=== PATIENT | male | born 1985 | race Two or more races ===

== ENCOUNTER 2019-02-27 20:57 | Inpatient (IN) | payer SELFPAY ==
[~2019-02-27] VITALS: Ht 167.6 cm; Wt 81.8 kg
[2019-02-27] MEDS ORDERED: ACETAMINOPHEN 650 mg PER 20 mL UD PO ONE (21:30)
[2019-02-27 21:48] LABS: Basophils # (auto) 0.1 uL; Basophils % (auto) 0.4 % (0.0-2.0); Eosinophils # (auto) 0 uL; Hematocrit 43.4 % (41.0-53.0); Hemoglobin 14.6 g/dL (13.5-17.5); Lymphocytes # (auto) 1.3 uL; Lymphocytes % (auto) 7.3 % (10.0-50.0); Mean Corpuscular Hemoglobin 29.2 pg (28.0-32.0); Mean Corpuscular Hgb Conc. 33.6 g/dL (32.0-36.0); Mean Corpuscular Volume 87.1 fL (80.0-100.0); Neutrophils # (auto) 14.5 uL; Neutrophils % (auto) 81.3 % (37.0-80.0); Platelet Count (auto) 347 10^3/uL (140-450); Red Blood Cells 4.98 10^6/uL (4.5-5.90); Red Cell Distribution Width 13.6 % (11.8-14.3); White Blood Cell 17.9 10^3/uL (4.4-10.8)
[2019-02-27 22:08] LABS: Albumin 3.2 g/dL (3.4-5.0); Anion Gap 10 (5-15); BUN/Creatinine Ratio 11.5; Blood Urea Nitrogen 10 mg/dL (7-18); Calcium 8.6 mg/dL (8.5-10.1); Carbon Dioxide 23 mmol/L (21-32); Chloride 99 mmol/L (98-107); GFR African American 132 mL/min; GFR Non-African American 109 mL/min; Glucose 117 mg/dL (74-106); Magnesium 2.4 mg/dL (1.6-2.6); Potassium 3.2 mmol/L (3.5-5.1); Sodium 132 mmol/L (136-145)
[2019-02-27 22:13] LABS: Alanine Aminotransferase 56 U/L (16-61); Alkaline Phosphatase 93 U/L (45-117); Aspartate Aminotransferase 27 U/L (15-37); Bilirubin, Total 0.6 mg/dL (0.2-1.0); Total Protein 8.8 g/dL (6.4-8.2)
[2019-02-27 22:37] LABS: INR 1.08 (0.9-1.15); Partial Thromboplastin Time 30.2 sec (23.78-33.04); Prothrombin Time 11.5 sec (9.27-12.13)
[2019-02-27 22:50] LABS: Urine Bacteria FEW /hpf (None Seen); Urine Blood Negative /uL (Negative); Urine Mucus FEW (None Seen); Urine Specific Gravity 1.025 (1.001-1.035); Urine WBC 1 /hpf (0 - 3)
[2019-02-28] MEDS ORDERED: IPRATROPIUM BROM 0.5 MG/2.5ML INH SOL NEB ONE (00:45)
[2019-02-28] MEDS ORDERED: methylPREDNISolone SOD SUCC 125 MG/2 ML VL IV ONE (00:45)
[2019-02-28] MEDS ORDERED: LEVOFLOXACIN 750MG 150 ML IV ONE (00:45)
[2019-02-28] MEDS ORDERED: ALBUTEROL SULF 2.5 MG/0.5ML(0.5%) NEB SOLN NEB ONE (00:45)
[2019-02-28] MEDS ORDERED: SODIUM CHLORIDE 0.9% 1,000 ML IV ONE (00:45)
[2019-02-28] MEDS ORDERED: ONDANSETRON HCL 4 MG/2 ML VIAL IV PRN (02:30)
[2019-02-28] MEDS ORDERED: TEMAZEPAM 15 MG CAP PO PRN (02:30)
[2019-02-28] MEDS ORDERED: ACETAMINOPHEN 325 MG TAB PO PRN (02:30)
--- NOTE | 2019-02-28 03:55 | NUR ---
MS admit from ER GENEVIEVE PAPPAS admitted to tele/MS; no SBAR received. Patient oriented by SUSIE VALDERRAMA, primary RN, to unit, room, bed, and unit policies regarding patient care and visiting hours. Patient weighed by bedscale and encouraged to call if he needs something. All questions and concerns addressed, patient verbalized understanding. Pain7/10; will give Harlan as ordered. Bed low. Nurse call light on OBT at bedside. HOB in Evans's position.
[2019-02-28] MEDS: HYDROcodone-ACET 5/325MG TAB PO PRN ×2 (04:51→14:06)
[2019-02-28 05:19] VITALS: BP 135/81
--- NOTE | 2019-02-28 07:20 | NUR ---
Open Shift Note Received report on patient, awake and sitting up in bed. Patient shows no signs of distress at this time. States they are feeling much better than yesterday, "especially after getting that [place]". Patient states no longer having headache. Discussed POC with patient. Bed in lowest locked position, side rails up x2, and call light within reach. Will continue to monitor.
[2019-02-28 09:00] VITALS: BP 142/88
[2019-02-28 09:07] VITALS: BP 135/81
--- NOTE | 2019-02-28 09:51 | NUR ---
Respiratory note: ASSESSED PT FOR PRN TX PT WAS AWAKE AND ALERT NO RESP DISTRESS NOTED. HR 111, RR 16, SPO2 94% ON ROOM AIR. BS ARE CLEAR. PT KNOWS TO HAVE RT PAGED IF TX IS NEEDED.
[2019-02-28] MEDS: FAMOTIDINE 20 MG TAB PO SCH ×2 (10:00→21:27)
--- NOTE | 2019-02-28 12:23 | NUR ---
Nutrition consult/assessment Notes please see attached link for complete assessment Est. Needs BW [id number] kcal (23-25 kcal/kgBW), 84-92 gms pro (1.0-1.1 gms/kgBW). Will continue to monitor pertinent labs and reassess nutrient need prn Addendum: 02/28/19 at [address] Amended: Links added.
[2019-02-28 13:00] VITALS: BP 140/103
[2019-02-28 16:59] VITALS: BP 144/100
[2019-02-28] MEDS ORDERED: LEVOFLOXACIN 500MG 100 ML IV SCH (22:00)
[2019-03-01 06:05] LABS: Basophils # (auto) 0 uL; Eosinophils # (auto) 0 uL; Eosinophils % (auto) 0.2 % (0.0-7.0); Hematocrit 39.2 % (41.0-53.0); Hemoglobin 13.2 g/dL (13.5-17.5); Lymphocytes # (auto) 1.7 uL; Mean Corpuscular Hemoglobin 29.8 pg (28.0-32.0); Mean Corpuscular Hgb Conc. 33.8 g/dL (32.0-36.0); Mean Corpuscular Volume 88.1 fL (80.0-100.0); Monocytes # (auto) 1.3 uL; Monocytes % (auto) 11.1 % (0.0-12.0); Neutrophils # (auto) 8.9 uL; Neutrophils % (auto) 74.7 % (37.0-80.0); Platelet Count (auto) 391 10^3/uL (140-450); Red Blood Cells 4.45 10^6/uL (4.5-5.90); Red Cell Distribution Width 13.5 % (11.8-14.3); White Blood Cell 11.9 10^3/uL (4.4-10.8)
[2019-03-01 06:16] LABS: Potassium 3.6 mmol/L (3.5-5.1)
[2019-03-01 06:20] LABS: Calcium 8.9 mg/dL (8.5-10.1)
[2019-03-01 06:26] LABS: BUN/Creatinine Ratio 17.5
--- NOTE | 2019-03-01 07:28 | NUR ---
5 circles approx 1 - 2cm in diam of bright red blood saved by pt on paper towels. states started coughing upon awakening approx 30 minutes ago. Now has migraine. Up to BR for b.m.; no results. Pt appears depressed. Blood shown to FUENTES Mortensen and information endorsed to her.
[2019-03-01] MEDS: HYDROcodone-ACET 5/325MG TAB PO PRN (07:37)
[2019-03-01 08:00] VITALS: BP 154/91
[2019-03-01] MEDS: FAMOTIDINE 20 MG TAB PO SCH ×2 (10:11→21:56)
[2019-03-01] MEDS: ALBUTEROL SULF 2.5 MG/0.5ML(0.5%) NEB SOLN NEB PRN ×2 (11:21→17:47)
--- NOTE | 2019-03-01 11:21 | NUR ---
Respiratory note: CORRECT CHARTING TIME IS 1121 PATIENT WAS ASSESSED FOR PRN BREATHING TX, TX WAS GIVEN. PATIENT STATED HE FEELS THAT HE WOULD BENEFIT FROM ONE. PATIENT IS AWAKE AND ALERT, BREATH SOUNDS ARE CLEAR, HR 106, RR 18, SPO2 96% ON ROOM AIR. PATIENT IS AWARE TO HAVE RT PAGED IF BREATHING TX IS NEEDED. FUENTES IBANEZ AWARE AND NOTIFIED. Addendum: 03/01/19 at 1151 by RUBEN BARRIOS, RT RT Amended: Links added.
[2019-03-01 12:30] VITALS: BP 141/91
--- NOTE | 2019-03-01 15:42 | NUR ---
SS consult regarding advance directives. Provided information and medical power of litigation attorney form for pt as well as instructions. Pt verbalized understanding of the above.
[2019-03-01 17:00] VITALS: BP 105/62
[2019-03-01] MEDS: LEVOFLOXACIN 500 MG TAB PO SCH (21:56)
[2019-03-01 22:00] VITALS: BP 151/97
[2019-03-02 05:42] VITALS: BP 111/76
[2019-03-02 06:45] LABS: Basophils # (auto) 0 uL; Basophils % (auto) 0.2 % (0.0-2.0); Eosinophils # (auto) 0.1 uL; Hematocrit 40.3 % (41.0-53.0); Hemoglobin 13.5 g/dL (13.5-17.5); Lymphocytes # (auto) 1.8 uL; Lymphocytes % (auto) 25.7 % (10.0-50.0); Mean Corpuscular Hemoglobin 29.5 pg (28.0-32.0); Mean Corpuscular Hgb Conc. 33.4 g/dL (32.0-36.0); Mean Corpuscular Volume 88.1 fL (80.0-100.0); Monocytes # (auto) 0.7 uL; Monocytes % (auto) 9.6 % (0.0-12.0); Neutrophils # (auto) 4.4 uL; Neutrophils % (auto) 63.5 % (37.0-80.0); Nucleated Red Blood Cells % 0.1 %; Platelet Count (auto) 449 10^3/uL (140-450); Red Blood Cells 4.58 10^6/uL (4.5-5.90); White Blood Cell 6.9 10^3/uL (4.4-10.8)
[2019-03-02 08:00] VITALS: BP 123/74
[2019-03-02] MEDS: LEVOFLOXACIN 500 MG TAB PO SCH (09:58)
[2019-03-02] MEDS: FAMOTIDINE 20 MG TAB PO SCH ×2 (09:59→21:33)
[2019-03-02] MEDS: ALBUTEROL SULF 2.5 MG/0.5ML(0.5%) NEB SOLN NEB PRN ×3 (10:45→22:06)
--- NOTE | 2019-03-02 10:45 | NUR ---
Respiratory note: ASSESSED PATIENT FOR PRN TX. PATIENT IS AWAKE AND ALERT, PATIENT STATES THAT HE WOULD BENEFIT FROM BREATHING TX. BREATH SOUNDS ARE SLIGHTLY COARSE. PATIENT IS AWARE TO HAVE RT PAGED IF BREATHING TX IS NEEDED. WILL CONTINUE TO MONITOR PATIENT.
[2019-03-02 12:00] VITALS: BP 140/94
[2019-03-02 17:00] VITALS: BP 140/88
--- NOTE | 2019-03-02 19:10 | NUR ---
Opening Shift Note Assumed care of patient, awake and alert x4, sitting up in bed watching television. No S/S of distress or SOB, pt. denies pain at this time. Respirations are even and unlabored. Updated on POC and instructed to call for assist as needed. Bed locked in lowest position, side rails up x2, call light within reach. Will continue to monitor for changes Q1hr and PRN
--- NOTE | 2019-03-02 19:44 | NUR ---
IV removal Left AC IV DC'd with clean sterile technique, catheter fully intact. Pressure dressing applied to site. Patient tolerated well.
--- NOTE | 2019-03-02 21:25 | NUR ---
IV insertion IV access obtained, via clean sterile technique by inserting 22 gauge catheter at Left hand after 2 attempt(s). IV secured properly. No trauma to site. Patient tolerated well.
[2019-03-02 22:02] VITALS: BP 140/88
[2019-03-03 05:15] VITALS: BP 134/93
--- NOTE | 2019-03-03 05:58 | NUR ---
IV removal Left hand IV DC'd with clean sterile technique, catheter fully intact. Pressure dressing applied to site. Patient tolerated well.
--- NOTE | 2019-03-03 06:06 | NUR ---
Pt. refused IV placement Educated on importance of having IV during visit, but still refused at this time.
--- NOTE | 2019-03-03 07:01 | NUR ---
CLOSING NOTE PT STABLE , RESTING IN BED, NO DISTRESS NOTED , REPORT GIVEN TO DAY SHIFT NURSE.
--- NOTE | 2019-03-03 07:25 | NUR ---
OPENING SHIFT NOTE ASSUMED CARE OF PATIENT FROM MANAGER FOOD BEVERAGE FUENTES MONROY. PATIENT IS AWAKE AND ALERT X4. PATIENT HAS NO S/S OF DISTRESS/SOB OR PAIN. INSTRUCTED PATIENT ON POC, PATIENT VERBALIZED UNDERSTANDING. BED IS IN LOWEST POSITION WITH SIDE RAILS RAISED X2, BED WHEELS LOCKED, CALL LIGHT IS WITHIN REACH. WILL CONTINUE TO MONITOR.
[2019-03-03 08:20] VITALS: BP 137/85
[2019-03-03 08:50] VITALS: BP 137/85
--- NOTE | 2019-03-03 09:55 | NUR ---
PT. ASSESSED FOR PRN. MN. TX., NO RESP. DISTRESS OR SOB NOTED. PT. IS SITTING UP IN THE BED. BS. ARE CLEAR,HR-98,RR=16,SP02=97% ON RA. PT. STATED HE DOES NOT NEED A TX. AT THIS TIME. NO TX. GIVEN, PT. WAS INSTRUCTED TO CALL IF NEEDED.
[2019-03-03] MEDS: FAMOTIDINE 20 MG TAB PO SCH (10:24)
[2019-03-03] MEDS: LEVOFLOXACIN 500 MG TAB PO SCH (10:24)
--- NOTE | 2019-03-03 11:43 | NUR ---
PATIENT IS IN DISTRESS AND IS SHORT OF BREATH. VITALS TAKEN AT THIS TIME AND ARE FOLLOWS: 98.6 F, 103 BPM, RR 21, SPO2 100% ON ROOM AIR, AND BLOOD PRESSURE IS 157/106 mmHg. PER PATIENT HE HAS A HISTORY OF ANXIETY ATTACKS. INFORMED MD SEDRICK MD IS AWARE AND ORDERED 0.5 mg ATIVAN PO Q6 HOURS PRN. WILL ADMINISTER MEDICATION TO PATIENT AND WILL REASSESS.
[2019-03-03] MEDS ORDERED: LORazepam 0.5 MG TAB PO PRN (11:45)
[2019-03-03 12:17] VITALS: BP 146/85
--- NOTE | 2019-03-03 12:30 | NUR ---
REASSESSED PATIENT PATIENT STATES "HE FEELS MUCH BETTER." BP IS 146/85 mmHg, HR IS 80 BPM, SPO2 100%, RR 21. WILL CONTINUE TO MONITOR.
[2019-03-03 13:00] VITALS: BP 137/85
--- NOTE | 2019-03-03 14:30 | NUR ---
MD DUBOSE AT BEDSIDE UPDATED MD ON PATIENT'S STATUS, MD IS AWARE. MD WILL PUT IN DISCHARGE ORDERS FOR PATIENT. WILL FOLLOW THROUGH WITH ORDERS.
[2019-03-03 14:55] VITALS: BP 146/85
--- NOTE | 2019-03-03 16:00 | NUR ---
Discharge instructions given as ordered. Encourage to follow up with PMD as instructed. All questions and concerns addressed. Patient verbalized understanding. Medication reconciliation form completed and copy given to patient. Patient taken to vehicle via wheelchair with all personal belongings, accompanied by staff and family member. No distress noted at time of departure.
== END 2019-03-03 16:00 | disposition home or self-care (01) | DRG 871 ==
LOC: ER 20:59 → OVERFLOW 02-28 02:35 → EAST 02-28 03:53
PROVIDERS: ADMIT Nurse Practitioner; ATTEND Internal Medicine Pulmonary Disease
DX: A41.9 Sepsis, unspecified organism (principal); J18.1 Lobar pneumonia, unspecified organism; E87.1 Hypo-osmolality and hyponatremia; N39.0 Urinary tract infection, site not specified; E44.1 Mild protein-calorie malnutrition; E86.0 Dehydration; E87.6 Hypokalemia; J20.9 Acute bronchitis, unspecified; R91.1 Solitary pulmonary nodule; Z82.49 Family history of ischemic heart disease and other diseases of the circulatory system; Z82.5 Family history of asthma and other chronic lower respiratory diseases; Z83.3 Family history of diabetes mellitus; Z91.018 Allergy to other foods; Z68.29 Body mass index [BMI] 29.0-29.9, adult
CPT/HCPCS: 36415; 71046; 71250; 80048; 80053; 81001; 82962; 83605; 83735; 84484; 85025; 85610; 85730; 87040; 87045; 87070; 87086; 87205; 87493; 87899; 93005; 94640; A6257; G0378; J1956

== ENCOUNTER 2021-05-11 15:23 | Emergency (ER) | payer SELFPAY ==
[~2021-05-11] VITALS: Ht 167.6 cm; Wt 82.6 kg
[2021-05-11 16:17] VITALS: BP 158/97
== END 2021-05-11 19:36 | disposition home or self-care (01) ==
LOC: ER 15:23
DX: M62.838 Other muscle spasm (principal); N20.0 Calculus of kidney; R51.9 Headache, unspecified; Z91.018 Allergy to other foods; V49.49XA Driver injured in collision with other motor vehicles in traffic accident, initial encounter; Y93.89 Activity, other specified; Y92.488 Other paved roadways as the place of occurrence of the external cause; Y99.8 Other external cause status
CPT/HCPCS: 70450; 71250; 72125; 74176

== ENCOUNTER 2024-01-07 19:50 | Emergency (ER) | payer SELFPAY ==
[~2024-01-07] VITALS: Ht 167.6 cm; Wt 86.3 kg
[2024-01-07] MEDS: ONDANSETRON HCL 4 MG/2 ML VIAL IV ONE (21:00)
[2024-01-07] MEDS: KETOROLAC TROMETH 30 MG/ML 1ML VIAL IV ONE (21:00)
[2024-01-07] MEDS: MAGNESIUM SULFATE 1GM/100ML 100 ML IV SCH (21:00)
[2024-01-07 21:08] LABS: Basophils # (auto) 0 10 ^3/uL (0-0.2); Basophils % (auto) 0.3 % (0.0-2.0); Eosinophils # (auto) 0.1 10 ^3/uL (0-0.8); Eosinophils % (auto) 1.2 % (0.0-7.0); Hematocrit 50.7 % (41.0-53.0); Hemoglobin 16.8 g/dL (13.5-17.5); Lymphocytes # (auto) 1.8 10 ^3/uL (0.4-5.4); Lymphocytes % (auto) 21.1 % (10.0-50.0); Mean Corpuscular Hemoglobin 29.9 pg (28.0-32.0); Mean Corpuscular Hgb Conc. 33.2 g/dL (32.0-36.0); Mean Corpuscular Volume 90.3 fL (80.0-100.0); Monocytes # (auto) 0.9 10 ^3/uL (0-1.3); Monocytes % (auto) 10.1 % (0.0-12.0); Neutrophils # (auto) 5.8 10 ^3/uL (1.6-8.6); Neutrophils % (auto) 67.3 % (37.0-80.0); Nucleated Red Blood Cells % 0.2 %; Red Blood Cells 5.62 10^6/uL (4.5-5.90); Red Cell Distribution Width 13.2 % (11.8-14.3); White Blood Cell 8.6 10^3/uL (4.4-10.8)
[2024-01-07 21:22] LABS: Urine Bacteria NONE SEEN /hpf (None Seen); Urine Blood Negative /uL (Negative); Urine Clarity Clear (Clear); Urine Color Yellow (Yellow); Urine Mucus FEW (None Seen); Urine Protein, UAD TRACE (Negative); Urine Specific Gravity 1.024 (1.001-1.035); Urine WBC 4 /hpf (0 - 3); Urine pH 5.5 (5.0-8.0)
[2024-01-07 21:28] LABS: Alanine Aminotransferase 34 U/L (7-40); Albumin 5.2 g/dL (3.2-4.8); Alkaline Phosphatase 91 U/L (46-116); Anion Gap 10 (5-15); Aspartate Aminotransferase 18 U/L (13-40); BUN/Creatinine Ratio 8.6 (10.0-20.0); Bilirubin, Total 0.5 mg/dL (0.2-1.0); Blood Urea Nitrogen 8 mg/dL (9-23); Calcium 10.2 mg/dL (8.7-10.4); Carbon Dioxide 24 mmol/L (20-30); Chloride 109 mmol/L (98-107); Glucose 109 mg/dL (74-106); Lipase 30 U/L (12-53); Potassium 3.5 mmol/L (3.5-5.1); Sodium 143 mmol/L (136-145); Total Protein 8.1 g/dL (5.7-8.2)
[2024-01-07] MEDS ORDERED: IBUP-1455 PO (22:40)
[2024-01-07] MEDS ORDERED: CIPR-173 PO (22:40)
[2024-01-07] MEDS ORDERED: METR-344 PO (22:40)
[2024-01-07] MEDS ORDERED: DICY10CA PO (22:40)
[2024-01-07] MEDS ORDERED: ZOFR4T PO (22:40)
[2024-01-08] MEDS: PIPERACILLIN-TAZO 4.5GM 100 ML IV ONE (00:37)
[2024-01-08] MEDS: SODIUM CHLORIDE 0.9% 1,000 ML IV ONE (00:38)
[2024-01-08 02:15] VITALS: BP 134/92; PULSE 77; RESP 16; TEMP 98.2; O2SAT 99
== END 2024-01-08 02:23 | disposition home or self-care (01) ==
LOC: ER 19:50
DX: K52.9 Noninfective gastroenteritis and colitis, unspecified (principal); Z87.442 Personal history of urinary calculi; Z79.899 Other long term (current) drug therapy; Z91.018 Allergy to other foods
CPT/HCPCS: 36415; 74176; 80053; 81001; 83690; 85025; 96365; 96366; 96368; 96375; 99285; J1885; J2405; J2543; J3475